=== PATIENT | female | born 1955 | race African-American/Black ===

== ENCOUNTER 2017-01-19 03:03 | Emergency (ER) | payer BC ==
[~2017-01-19] VITALS: Ht 162.6 cm; Wt 83.0 kg
[2017-01-19 03:08] VITALS: BP 158/58
[2017-01-19 04:36] LABS: HEMATOCRIT. 41.4 % (36.0-48.0); HEMOGLOBIN. 13.4 g/dL (12.0-16.0); MEAN CORPUSCULAR HEMOGLOBIN 27.7 pg (28.0-32.0); MEAN CORPUSCULAR HGB CONC 32.4 g/dL (31.0-37.0); MEAN CORPUSCULAR VOLUME 85.4 fL (81.0-99.0); MEAN PLATELET VOLUME 8.2 fl (7.4-10.4); RED BLOOD CELL COUNT 4.85 mill/uL (4.2-5.4); RED CELL DISTRIBUTION WIDTH 14.1 % (11.6-14.6); WHITE BLOOD COUNT 5.3 x1000/uL (4.5-11.0)
[2017-01-19 04:39] LABS: DIFFERENTIAL COMMENT 1
[2017-01-19 04:51] LABS: ALANINE AMINOTRANSFERASE 18 IU/L (13-61); ALBUMIN 3.8 g/dL (3.4-5.0); ANION GAP 10; CALCIUM 9.2 mg/dL (8.5-10.1); CARBON DIOXIDE 31 mEq/L (21-32); CHLORIDE 107 mEq/L (98-107); INDEX HEMOLYSI 1 (1-3); INDEX ICTERIC 1 (1-4); INDEX LIPEMIC 1 (1-3); TROPONIN I < 0.02 ng/mL (0.00-0.04); UREA NITROGEN BLOOD 15 mg/dL (7-21); eGFR > 60 mL/min (>60)
[2017-01-19 05:11] LABS: PLATELET ESTIMATE NORMAL
[2017-01-19 05:12] LABS: PLATELET 264 x1000/uL (130-400)
== END 2017-01-19 06:55 | disposition home or self-care (01) ==
LOC: ER 03:19
DX: R00.2 Palpitations (principal)
CPT/HCPCS: 36415; 71010; 80053; 84443; 84484; 85025; 85379; 93005; 99285